=== PATIENT | female | born 1995 | race American Indian/Alaskan Native ===

== ENCOUNTER 2018-03-28 08:12 | Emergency (ER) | payer BC, MEDICAID ==
[2018-03-28 08:18] VITALS: BP 120/85
== END 2018-03-28 08:45 | disposition left against medical advice (07) ==
LOC: ED 08:12
DX: R10.9 Unspecified abdominal pain (principal); Z53.21 Procedure and treatment not carried out due to patient leaving prior to being seen by health care provider